=== PATIENT | female | born 1950 | race Caucasian/White ===

== ENCOUNTER 2018-07-27 09:41 | Emergency (ER) | payer MEDICARE, OTHER ==
[~2018-07-27] VITALS: Ht 160 cm; Wt 104.3 kg
[~2018-07-27 09:41] MED LIST: ACET1TAB33 PO; ACYC800T PO; GABA-586 PO; LISI-334 PO; MENT56CR TP; NAPR-695 PO; OXYC-328 PO; PRED20TA PO
[2018-07-27 10:00] VITALS: BP 168/99
[2018-07-27] MEDS ORDERED: OFLO5DRO7 RIGHT EAR (10:02)
--- NOTE | 2018-07-27 10:15 | PHYS DOC ---
Past Medical History Past Medical History: Diabetes-Type II, High Cholesterol, Hypertension Additional Past Medical Histor: CHRONIC back pain,MOLE REMOVED FROM FOOT Past Surgical History: Other Additional Past Surgical Histo: back surgery "rods/pins" per pt. Alcohol Use: Occasionally Drug Use: None Adult General Chief Complaint Chief Complaint: EARACHE/EAR PAIN [facility] HPI Patient is a 67 year old female presenting with ear pain. She said it was hot in her house and then she was in a car with the window open and she has had irritation of the ear canal for 3 days no fever pain is moderate worsening with time has not tried anything for relief except for con swabs no other symptoms no cough no fever no chest pain Review of Systems Review of Systems Constitutional: Denies fever or chills [] Eyes: Denies change in visual acuity, redness, or eye pain [] HENT: Denies nasal congestion or sore throat [] Respiratory: Denies cough or shortness of breath [] Cardiovascular: No additional information not addressed in HPI [] GI: Denies abdominal pain, nausea, vomiting, bloody stools or diarrhea [] All other systems were reviewed and found to be within normal limits, except as documented in this note. Current Medications Current Medications Current Medications Medications (Trade) Dose Ordered Sig/Ziggy Start Time Stop Time Status Last Admin Dose Admin Acetaminophen (Tylenol) 1,000 mg 1X ONCE 07/27/18 10:30 07/27/18 10:30 DC 07/27/18 10:23 1,000 MG Allergies Allergies Allergies Coded Allergies Type Severity Reaction Last Updated Verified Sulfa (Sulfonamide Antibiotics) Allergy Severe tongue swelling 01/10/15 Yes sulfamethoxazole Allergy Severe tongue swelling 01/10/15 Yes trimethoprim Allergy Severe tongue swelling 01/10/15 Yes Physical Exam Physical Exam Constitutional: Well developed, well nourished, no acute distress, non-toxic appearance. [] HENT: Right ear canal is erythematous eardrum appears normal possibly a small middle ear effusion but there is no bulging and no erythema of the drum Eyes: PERRLA, EOMI, conjunctiva normal, no discharge. [] Neck: Normal range of motion, no tenderness, supple, no stridor. [] Pulmonary: Normal respiratory effort no increased work of breathing no obvious chest wall trauma Abdomen: Bowel sounds normal, soft, no tenderness, no masses, no pulsatile masses. [] Skin: Warm, dry, no erythema, no rash. [] Back: No tenderness, no CVA tenderness. [] Extremities: No tenderness, no cyanosis, no clubbing, ROM intact, no edema. [] Neurologic: Alert and oriented X 3, normal motor function, normal sensory function, no focal deficits noted. [] Psychologic patient is somewhat anxious Current Patient Data Vital Signs Vital Signs Date Time Temp Pulse Resp B/P (MAP) Pulse Ox O2 Delivery O2 Flow Rate FiO2 07/27/18 10:00 98.9 100 20 168/99 (122) 94 Room Air 98.9 EKG EKG [] Radiology/Procedures Radiology/Procedures [] Course & Med Decision Making Course & Med Decision Making Pertinent Labs and Imaging studies reviewed. (See chart for details) []Elevated blood pressure was follow-up in 2-4 weeks otitis externa examination below treatment given return precautions advised Courtney Disclaimer Dragon Disclaimer This electronic medical record was generated, in whole or in part, using a voice recognition dictation system. Departure Departure Impression: Primary Impression: Otitis externa Additional Impression: Elevated blood pressure reading Disposition: 01 HOME, SELF-CARE Condition: STABLE Patient Instructions: Otitis Externa, [id number] Scripts Ofloxacin (OFLOXACIN) 5 Ml Drops 5 DROP RIGHT EAR BID for 7 Days, #10 ML Prov: FEDERICA HODGES MD 07/27/18 Problem Qualifiers FEDERICA HODGES MD Jul 27, 2018 10:15
[2018-07-27] MEDS ORDERED: ACETAMINOPHEN 500 MG TABLET PO ONE (10:30)
== END 2018-07-27 10:24 | disposition home or self-care (01) ==
LOC: ER 09:41
DX: H60.8X1 Other otitis externa, right ear (principal); I10 Essential (primary) hypertension; E11.9 Type 2 diabetes mellitus without complications; E78.00 Pure hypercholesterolemia, unspecified; G89.29 Other chronic pain; Z88.1 Allergy status to other antibiotic agents; Z88.2 Allergy status to sulfonamides
CPT/HCPCS: 99283